=== PATIENT | female | born 1970 | race Asian ===

== ENCOUNTER 2016-05-13 12:42 | Outpatient (CLI) | payer OTHER ==
[~2016-05-13 12:42] MED LIST: AMBIEN5 MG PO; ASPIRIN/ENTERIC81 MG PO; CALPHRON667 MG PO; CARV25TA PO; CARV6.25 PO; CLOP75TA2 PO; FOSRENOL1000 MG PO; FURO40TA93 PO; GABA100C2 PO; INSUINJ47 SC; ISOS10TA14 PO; METO50TA27 PO; METO5TAB38 PO; METOCLOPRAM5 MG PO; NEXIUM40 M1 PO; PROM25TA52 PO; RANITIDINE 150150 MG PO; SENSIPAR30 MG PO; SIMV20TA2 PO; TRAM50TA PO; VICODIN ES1 TA1 PO
== END 2016-05-13 12:48 | disposition short-term general hospital (02) ==
LOC: AMB 12:42
DX: R10.84 Generalized abdominal pain (principal); R11.2 Nausea with vomiting, unspecified; R42 Dizziness and giddiness
CPT/HCPCS: A0425; A0427

== ENCOUNTER 2016-05-13 12:52 | Emergency (ER) | payer OTHER ==
[~2016-05-13] VITALS: Ht 162.6 cm; Wt 70.8 kg
[2016-05-13 13:46] LABS: PLATELET COUNT 140 K/uL (152-353)
[2016-05-13 14:54] LABS: POTASSIUM 4.3 mmol/L (3.6-5.2)
[2016-05-13 15:20] VITALS: BP 146/89; TEMP 98.2
== END 2016-05-13 15:35 | disposition home or self-care (01) ==
LOC: ED 12:52
DX: B34.9 Viral infection, unspecified (principal); R11.2 Nausea with vomiting, unspecified
CPT/HCPCS: 36415; 80053; 85027; 86318; 96360; 96376; 99284; J2405

== ENCOUNTER 2016-05-18 04:08 | Outpatient (CLI) | payer OTHER ==
[2016-05-18] MEDS ORDERED: OMEP40CA PO (04:27)
[2016-05-19] MEDS ORDERED: LEVO0.1224 PO (07:50)
[2016-05-19] MEDS ORDERED: ALBUSOL IN (07:51)
[2016-05-19] MEDS ORDERED: LISI5TAB10 PO (07:52)
[2016-05-19] MEDS ORDERED: METFTAB PO (07:53)
[2016-05-19] MEDS ORDERED: METO25TA4 OR (07:54)
[2016-05-19] MEDS ORDERED: MULTIVITAMI1 OR (07:55)
[2016-05-19] MEDS ORDERED: INSUINJ20 SC (07:56)
[2016-05-19] MEDS ORDERED: AMIODARONE400 MG PO (07:57)
[2016-05-19] MEDS ORDERED: ELIQUIS5 MG OR (07:58)
[2016-05-19] MEDS ORDERED: AMLO2.5T PO (07:58)
[2016-05-19] MEDS ORDERED: FURO40TA93 PO (07:59)
[2016-05-19] MEDS ORDERED: FERR325T5 PO (07:59)
[2016-05-19] MEDS ORDERED: GLIM2TAB PO (08:00)
[2016-05-19] MEDS ORDERED: SPIR50TA8 PO (08:01)
== END 2016-05-18 04:13 | disposition short-term general hospital (02) ==
LOC: AMB 04:08
DX: R06.09 Other forms of dyspnea (principal)
CPT/HCPCS: A0425; A0427

== ENCOUNTER 2016-05-18 04:16 | Inpatient (IN) | payer OTHER ==
[~2016-05-18] VITALS: Ht 162.6 cm; Wt 72.6 kg
[2016-05-18] VITALS (22 sets, daily range): BP systolic 135–183; BP diastolic 62–107; TEMP 97.4–98.4; Ht 162.6 cm; Wt 72.6 kg
[2016-05-18] MEDS ORDERED: OMEP40CA PO (04:27)
[2016-05-18 05:03] LABS: PLATELET COUNT 250 K/uL (152-353)
[2016-05-18 05:21] LABS: POTASSIUM 4.6 mmol/L (3.6-5.2)
[2016-05-18 10:18] LABS: POTASSIUM 3.6 mmol/L (3.6-5.2)
[2016-05-18 13:41] LABS: POTASSIUM 4.2 mmol/L (3.6-5.2)
[2016-05-19] VITALS (19 sets, daily range): BP systolic 127–171; BP diastolic 58–98; TEMP 97.8–98.7
[2016-05-19 06:37] LABS: PLATELET COUNT 222 K/uL (152-353)
[2016-05-19 06:56] LABS: POTASSIUM 5.8 mmol/L (3.6-5.2)
[2016-05-19] MEDS ORDERED: LEVO0.1224 PO (07:50)
[2016-05-19] MEDS ORDERED: ALBUSOL IN (07:51)
[2016-05-19] MEDS ORDERED: LISI5TAB10 PO (07:52)
[2016-05-19] MEDS ORDERED: METFTAB PO (07:53)
[2016-05-19] MEDS ORDERED: METO25TA4 OR (07:54)
[2016-05-19] MEDS ORDERED: MULTIVITAMI1 OR (07:55)
[2016-05-19] MEDS ORDERED: INSUINJ20 SC (07:56)
[2016-05-19] MEDS ORDERED: AMIODARONE400 MG PO (07:57)
[2016-05-19] MEDS ORDERED: ELIQUIS5 MG OR (07:58)
[2016-05-19] MEDS ORDERED: AMLO2.5T PO (07:58)
[2016-05-19] MEDS ORDERED: FERR325T5 PO (07:59)
[2016-05-19] MEDS ORDERED: FURO40TA93 PO (07:59)
[2016-05-19] MEDS ORDERED: GLIM2TAB PO (08:00)
[2016-05-19] MEDS ORDERED: SPIR50TA8 PO (08:01)
[2016-05-20] VITALS (13 sets, daily range): BP systolic 97–136; BP diastolic 55–84; TEMP 97.9–98
[2016-05-20 04:19] LABS: PLATELET COUNT 207 K/uL (152-353)
[2016-05-20 04:35] LABS: POTASSIUM 3.5 mmol/L (3.6-5.2)
== END 2016-05-20 14:40 | disposition home or self-care (01) | DRG 682 ==
LOC: ED 04:16 → ICU 06:14
PROVIDERS: Emergency Medicine; Internal Medicine
PROC: 5A1D00Z (ICD-10-PCS; principal; 2016-05-19)
DX: I12.0 Hypertensive chronic kidney disease with stage 5 chronic kidney disease or end stage renal disease (principal); J81.0 Acute pulmonary edema; N18.6 End stage renal disease; E11.00 Type 2 diabetes mellitus with hyperosmolarity without nonketotic hyperglycemic-hyperosmolar coma (NKHHC); E87.2 Acidosis; E87.5 Hyperkalemia; I10 Essential (primary) hypertension; G89.29 Other chronic pain
CPT/HCPCS: 36415; 36600; 80048; 80053; 80074; 81002; 82805; 82962; 83036; 83735; 83880; 85027; 86361; 93005; 96365; 96372; 96375; 99284; J1644; J1815; J1940; J2175; J2405; J2550; J3265; J3490

== ENCOUNTER 2016-09-01 00:30 | Outpatient (CLI) | payer OTHER ==
[~2016-09-01 00:30] MED LIST changes: +ALBUSOL IN; +AMIODARONE400 MG PO; +AMLO2.5T PO; +ELIQUIS5 MG OR; +FERR325T5 PO; +GLIM2TAB PO; +INSUINJ20 SC; +LEVO0.1224 PO; +LISI5TAB10 PO; +METFTAB PO; +METO25TA4 OR; +MULTIVITAMI1 OR; +OMEP40CA PO; +SPIR50TA8 PO
[2016-09-01] MEDS ORDERED: SENSIPAR30 MG OR (07:33)
[2016-09-01] MEDS ORDERED: DIFLUCAN50 MG PO (07:35)
[2016-09-01] MEDS ORDERED: CIPRO250 MG PO (07:35)
[2016-09-01] MEDS ORDERED: METRONIDAZOL250 MG PO (07:36)
[2016-09-01] MEDS ORDERED: NOVOLOG MIX 70/30 PR SC (16:48)
== END 2016-09-01 00:35 | disposition short-term general hospital (02) ==
LOC: AMB 00:30
DX: R06.02 Shortness of breath (principal)
CPT/HCPCS: A0425; A0427

== ENCOUNTER 2016-09-26 02:34 | Outpatient (CLI) | payer OTHER ==
[~2016-09-26 02:34] MED LIST changes: +CIPRO250 MG PO; +DIFLUCAN50 MG PO; +METRONIDAZOL250 MG PO; +NOVOLOG MIX 70/30 PR SC; +SENSIPAR30 MG OR
[2016-09-26] MEDS ORDERED: LORTAB 7.5-3251 TAB PO (04:31)
[2016-09-26] MEDS ORDERED: CIPRO250 MG PO (04:31)
[2016-09-26] MEDS ORDERED: ASPIRIN ADULT L81 M1 PO (04:31)
[2016-09-26] MEDS ORDERED: PHOSLO667 MG PO (04:32)
[2016-09-26] MEDS ORDERED: NOVOLOG SC (04:34)
== END 2016-09-26 02:38 | disposition short-term general hospital (02) ==
LOC: AMB 02:34
DX: R06.09 Other forms of dyspnea (principal)
CPT/HCPCS: A0425; A0429

== ENCOUNTER 2016-09-26 02:44 | Inpatient (IN) | payer OTHER ==
[2016-09-26] VITALS (9 sets, daily range): BP systolic 162–218; BP diastolic 88–115; TEMP 97.9–98.5; Ht 157.5 cm; Wt 76.2 kg
[~2016-09-26] VITALS: Ht 157.5 cm; Wt 76.2 kg
[2016-09-26 03:28] LABS: PLATELET COUNT 240 K/uL (152-353)
[2016-09-26 03:52] LABS: POTASSIUM 4.9 mmol/L (3.6-5.2)
[2016-09-26] MEDS ORDERED: LORTAB 7.5-3251 TAB PO (04:31)
[2016-09-26] MEDS ORDERED: ASPIRIN ADULT L81 M1 PO (04:31)
[2016-09-26] MEDS ORDERED: CIPRO250 MG PO (04:31)
[2016-09-26] MEDS ORDERED: PHOSLO667 MG PO (04:32)
[2016-09-26] MEDS ORDERED: NOVOLOG SC (04:34)
== END 2016-09-26 13:30 | disposition short-term general hospital (02) | DRG 291 ==
LOC: ED 02:44 → ICU 04:13
PROVIDERS: ADMIT Emergency Medicine
DX: I13.2 Hypertensive heart and chronic kidney disease with heart failure and with stage 5 chronic kidney disease, or end stage renal disease (principal); N18.6 End stage renal disease; I50.33 Acute on chronic diastolic (congestive) heart failure; K21.9 Gastro-esophageal reflux disease without esophagitis; E11.9 Type 2 diabetes mellitus without complications
CPT/HCPCS: 36415; 80053; 82550; 82962; 83880; 84484; 85027; 94640; 94664; 94760; 96372; 96374; 96375; 99284; J1815; J1940; J2405

== ENCOUNTER 2016-09-26 13:35 | Outpatient (CLI) | payer OTHER ==
[~2016-09-26 13:35] MED LIST changes: +ASPIRIN ADULT L81 M1 PO; +LORTAB 7.5-3251 TAB PO; +NOVOLOG SC; +PHOSLO667 MG PO
== END 2016-09-26 13:37 | disposition short-term general hospital (02) ==
LOC: AMB 13:35
DX: I13.2 Hypertensive heart and chronic kidney disease with heart failure and with stage 5 chronic kidney disease, or end stage renal disease (principal); N18.6 End stage renal disease; I50.33 Acute on chronic diastolic (congestive) heart failure; K21.9 Gastro-esophageal reflux disease without esophagitis; E11.9 Type 2 diabetes mellitus without complications
CPT/HCPCS: A0425; A0427

== ENCOUNTER 2016-11-17 16:09 | Outpatient (CLI) | payer OTHER ==
[~2016-11-17 16:09] MED LIST changes: -SENSIPAR30 MG OR
== END 2016-11-17 16:15 | disposition short-term general hospital (02) ==
LOC: AMB 16:09
DX: R11.2 Nausea with vomiting, unspecified (principal)
CPT/HCPCS: A0425; A0427

== ENCOUNTER 2016-11-17 16:15 | Emergency (ER) | payer OTHER ==
[~2016-11-17] VITALS: Ht 162.6 cm; Wt 71.2 kg
[2016-11-17 16:15] VITALS: TEMP 98.4
[2016-11-17 17:57] LABS: PLATELET COUNT 248 K/uL (152-353)
[2016-11-17 21:29] VITALS: BP 178/92
== END 2016-11-17 22:12 | disposition short-term general hospital (02) ==
LOC: ED 16:15
PROVIDERS: Specialist
PROC: 06HM33Z Insertion of Infusion Device into Right Femoral Vein, Percutaneous Approach (ICD-10-PCS; principal; 2016-11-17)
DX: E10.10 Type 1 diabetes mellitus with ketoacidosis without coma (principal); N18.6 End stage renal disease; R11.2 Nausea with vomiting, unspecified; I87.8 Other specified disorders of veins
CPT/HCPCS: 36415; 36600; 80053; 81002; 82550; 82553; 82805; 83605; 83735; 83880; 84100; 84484; 85027; 93005; 96365; 96375; 96376; 99284; C1768; J1815; J2550

== ENCOUNTER 2016-11-28 20:35 | Emergency (ER) | payer OTHER ==
[~2016-11-28] VITALS: Ht 162.6 cm; Wt 71.2 kg
[2016-11-28 22:20] VITALS: BP 144/70; TEMP 97.8
== END 2016-11-28 22:38 | disposition home or self-care (01) ==
LOC: ED 20:35
DX: J44.1 Chronic obstructive pulmonary disease with (acute) exacerbation (principal); R06.09 Other forms of dyspnea
CPT/HCPCS: 94640; 94664; 99283

== ENCOUNTER 2016-11-29 20:32 | Outpatient (CLI) | payer OTHER | END 2016-11-29 20:38 | disposition short-term general hospital (02) | LOC: AMB 20:32 | DX: R06.09 Other forms of dyspnea (principal) | CPT/HCPCS: A0425; A0427 ==

== ENCOUNTER 2016-12-03 02:30 | Emergency (ER) | payer OTHER ==
[~2016-12-03] VITALS: Ht 162.6 cm; Wt 72.6 kg
[2016-12-03 03:07] LABS: PLATELET COUNT 242 K/uL (152-353)
[2016-12-03 03:15] LABS: POTASSIUM 3.7 mmol/L (3.6-5.2)
[2016-12-03 03:59] VITALS: BP 182/95; TEMP 98.9
== END 2016-12-03 04:01 | disposition home or self-care (01) ==
LOC: ED 02:30
DX: I50.9 Heart failure, unspecified (principal); I51.7 Cardiomegaly; N18.6 End stage renal disease
CPT/HCPCS: 36415; 80053; 83880; 85027; 99283

== ENCOUNTER → 2016-12-05 10:25 | Outpatient (CLI) | payer OTHER | END | disposition short-term general hospital (02) | LOC: AMB 10:25 | DX: R06.02 Shortness of breath (principal); R06.2 Wheezing | CPT/HCPCS: A0425; A0429 ==

== ENCOUNTER 2016-12-05 10:26 | Inpatient (IN) | payer OTHER ==
[~2016-12-05] VITALS: Ht 162.6 cm; Wt 72.8 kg
[2016-12-05 10:27] VITALS: BP 111/68; TEMP 97.7
[2016-12-05 14:27] LABS: PLATELET COUNT 278 K/uL (152-353)
[2016-12-05 14:49] LABS: POTASSIUM 3.5 mmol/L (3.6-5.2)
[2016-12-05 19:55] VITALS: BP 175/99
[2016-12-05 22:00] VITALS: BP 149/85; TEMP 98.3
[2016-12-05 22:24] VITALS: BP 149/85; TEMP 98.3; Ht 162.6 cm; Wt 72.8 kg
[2016-12-05 23:00] VITALS: BP 189/96
[2016-12-05 23:50] VITALS: BP 140/78; TEMP 98.3
[2016-12-06] VITALS (13 sets, daily range): BP systolic 121–172; BP diastolic 70–101; TEMP 98–98.8
[2016-12-06 06:01] LABS: PLATELET COUNT 283 K/uL (152-353)
[2016-12-06 06:16] LABS: POTASSIUM 3.1 mmol/L (3.6-5.2)
[2016-12-06] MEDS ORDERED: PROM25TA52 PO (12:52)
[2016-12-07] VITALS: BP 154/69; TEMP 98.4
[2016-12-07 04:00] VITALS: BP 174/89; TEMP 98.1
[2016-12-07 05:09] LABS: PLATELET COUNT 251 K/uL (152-353)
[2016-12-07 05:40] LABS: POTASSIUM 3.3 mmol/L (3.6-5.2)
[2016-12-07 08:00] VITALS: BP 165/95; TEMP 97.8
[2016-12-07 12:00] VITALS: BP 150/88; TEMP 98.6
[2016-12-07 16:00] VITALS: BP 175/90; TEMP 98.5
[2016-12-07 20:00] VITALS: BP 159/70; TEMP 98.4
[2016-12-08] VITALS: BP 166/87; TEMP 98.3
[2016-12-08 04:00] VITALS: BP 145/78; TEMP 98.1
[2016-12-08 06:40] LABS: POTASSIUM 3.9 mmol/L (3.6-5.2)
[2016-12-08 08:00] VITALS: BP 161/91; TEMP 98.3
[2016-12-08 16:00] VITALS: BP 176/89; TEMP 98.2
[2016-12-08 20:00] VITALS: BP 157/65; TEMP 98.7
[2016-12-09] VITALS: BP 170/80; TEMP 98.5
[2016-12-09 04:00] VITALS: BP 152/57; TEMP 97.5
[2016-12-09 07:14] LABS: PLATELET COUNT 230 K/uL (152-353)
[2016-12-09 07:51] LABS: POTASSIUM 3.8 mmol/L (3.6-5.2)
[2016-12-09 08:00] VITALS: BP 145/64; TEMP 97.8
== END 2016-12-09 13:00 | disposition home or self-care (01) | DRG 190 ==
LOC: ED 10:26 → ICU 19:50 → MED/SURG 19:50 → ICU 12-06 15:00 → MED/SURG 12-06 15:00
PROVIDERS: ADMIT Emergency Medicine
PROC: 06HM33Z Insertion of Infusion Device into Right Femoral Vein, Percutaneous Approach (ICD-10-PCS; principal; 2016-12-06)
PROC: B54BZZA Ultrasonography of Right Lower Extremity Veins, Guidance (ICD-10-PCS; 2016-12-06)
PROC: 5A1D70Z Performance of Urinary Filtration, Intermittent, Less than 6 Hours Per Day (ICD-10-PCS; 2016-12-08)
DX: J44.1 Chronic obstructive pulmonary disease with (acute) exacerbation (principal); N18.6 End stage renal disease; I12.0 Hypertensive chronic kidney disease with stage 5 chronic kidney disease or end stage renal disease; R06.09 Other forms of dyspnea; Y84.1 Kidney dialysis as the cause of abnormal reaction of the patient, or of later complication, without mention of misadventure at the time of the procedure; E10.22 Type 1 diabetes mellitus with diabetic chronic kidney disease; K21.9 Gastro-esophageal reflux disease without esophagitis; R11.2 Nausea with vomiting, unspecified; G47.09 Other insomnia; Y92.89 Other specified places as the place of occurrence of the external cause; R06.02 Shortness of breath; I50.9 Heart failure, unspecified; I51.7 Cardiomegaly
CPT/HCPCS: 36415; 36591; 74022; 80053; 82550; 82948; 82962; 83036; 83735; 83880; 84484; 85027; 85379; 87070; 87077; 87185; 87186; 93005; 94760; 96367; 96372; 99283; 99284; C1768; J1644; J1815; J2550

== ENCOUNTER 2016-12-14 21:36 | Emergency (ER) | payer OTHER ==
[~2016-12-14] VITALS: Ht 162.6 cm; Wt 70.8 kg
[2016-12-14 22:11] LABS: PLATELET COUNT 206 K/uL (152-353)
[2016-12-14 22:38] LABS: POTASSIUM 4.2 mmol/L (3.6-5.2)
[2016-12-14 22:41] LABS: PARTIAL THROMBOPLASTIN TIME 22.5 SECONDS (24.5-33.6)
[2016-12-14 23:14] VITALS: BP 174/90; TEMP 98.4
== END 2016-12-14 23:16 | disposition home or self-care (01) ==
LOC: ED 21:36
DX: J30.89 Other allergic rhinitis (principal); J06.9 Acute upper respiratory infection, unspecified; N18.9 Chronic kidney disease, unspecified
CPT/HCPCS: 36415; 80053; 82550; 84484; 85027; 85610; 85730; 99283

== ENCOUNTER 2016-12-23 17:41 | Outpatient (CLI) | payer OTHER | END 2016-12-23 17:46 | disposition short-term general hospital (02) | LOC: AMB 17:41 | DX: E11.65 Type 2 diabetes mellitus with hyperglycemia (principal) | CPT/HCPCS: A0425; A0427 ==

== ENCOUNTER 2016-12-23 17:53 | Observation (INO) | payer OTHER ==
[~2016-12-23] VITALS: Ht 162.6 cm; Wt 71.9 kg
[2016-12-23 17:50] VITALS: BP 157/85; TEMP 98.9
[2016-12-23 18:55] LABS: PLATELET COUNT 244 K/uL (152-353)
[2016-12-23 19:11] LABS: POTASSIUM 3.8 mmol/L (3.6-5.2)
[2016-12-23 23:42] VITALS: BP 127/65; TEMP 98.5; Ht 162.6 cm; Wt 71.9 kg
[2016-12-24 04:00] VITALS: BP 127/42; TEMP 98
[2016-12-24 06:36] LABS: PLATELET COUNT 243 K/uL (152-353)
[2016-12-24 06:47] LABS: POTASSIUM 4.3 mmol/L (3.6-5.2)
[2016-12-24 20:00] VITALS: BP 159/59; TEMP 98.1
[2016-12-25] VITALS: BP 128/59; TEMP 98.4
[2016-12-25 04:00] VITALS: BP 162/84; TEMP 98.3
[2016-12-25 08:00] VITALS: BP 156/72; TEMP 99.2
[2016-12-25 12:00] VITALS: BP 153/79; TEMP 98.9
== END 2016-12-25 14:55 | disposition home or self-care (01) ==
LOC: ED 17:53 → MED/SURG 20:00
DX: R11.2 Nausea with vomiting, unspecified (principal); E11.22 Type 2 diabetes mellitus with diabetic chronic kidney disease; I12.0 Hypertensive chronic kidney disease with stage 5 chronic kidney disease or end stage renal disease; N18.6 End stage renal disease
CPT/HCPCS: 36415; 36600; 80053; 82805; 83036; 83735; 84100; 85027; 94760; 96372; 99220; 99283; G0257; G0378; J1644

== ENCOUNTER 2016-12-28 12:49 | Outpatient (CLI) | payer OTHER | END 2016-12-28 12:54 | disposition short-term general hospital (02) | LOC: AMB 12:49 | DX: E11.65 Type 2 diabetes mellitus with hyperglycemia (principal); R11.2 Nausea with vomiting, unspecified | CPT/HCPCS: A0425; A0427 ==

== ENCOUNTER 2016-12-28 12:57 | Emergency (ER) | payer OTHER ==
[~2016-12-28] VITALS: Ht 162.6 cm; Wt 68.0 kg
[2016-12-28 13:55] LABS: PLATELET COUNT 199 K/uL (152-353)
[2016-12-28 20:04] VITALS: BP 148/84; TEMP 97.8
== END 2016-12-28 19:50 | disposition home or self-care (01) ==
LOC: ED 12:57
PROVIDERS: Specialist
DX: E11.65 Type 2 diabetes mellitus with hyperglycemia (principal); R42 Dizziness and giddiness
CPT/HCPCS: 36415; 80053; 81002; 83735; 84100; 85027; 87040; 96372; 96374; 96375; 96376; 99284; J0360; J1815; J2550

== ENCOUNTER 2017-01-02 17:04 | Outpatient (CLI) | payer OTHER | END 2017-01-02 17:09 | disposition short-term general hospital (02) | LOC: AMB 17:04 | DX: R06.02 Shortness of breath (principal); R11.2 Nausea with vomiting, unspecified; R10.84 Generalized abdominal pain | CPT/HCPCS: A0425; A0427 ==

== ENCOUNTER 2017-01-02 17:12 | Observation (INO) | payer OTHER ==
[~2017-01-02] VITALS: Ht 162.6 cm; Wt 74.4 kg
[2017-01-02 17:17] VITALS: BP 72/43; TEMP 98.3
[2017-01-02 18:35] VITALS: BP 105/82
[2017-01-02 22:34] LABS: POTASSIUM 2.7 mmol/L (3.6-5.2)
[2017-01-02 22:36] LABS: PLATELET COUNT 305 K/uL (152-353)
[2017-01-02 23:10] VITALS: BP 190/90
[2017-01-03 04:59] VITALS: BP 190/92; TEMP 98.1; Ht 162.6 cm; Wt 74.4 kg
[2017-01-03 06:29] VITALS: BP 173/70; TEMP 99.3
[2017-01-03 08:00] VITALS: BP 177/86; TEMP 98.7
[2017-01-03 08:04] LABS: PLATELET COUNT 260 K/uL (152-353)
[2017-01-03 09:07] LABS: POTASSIUM 3.3 mmol/L (3.6-5.2)
[2017-01-03 12:00] VITALS: BP 141/67; TEMP 98.9
--- NOTE | 2017-01-03 13:17 | NUR ---
RADIOLOGY AT TO TAKE PT FOR CT SCAN. PT TRANSPORTED TO RADIOLOGY VIA . NAD NOTED.
[2017-01-03 16:00] VITALS: BP 162/83; TEMP 98.7
[2017-01-03 20:00] VITALS: BP 156/80; TEMP 98.3
[2017-01-04] VITALS: BP 152/76; TEMP 98.7
[2017-01-04 04:00] VITALS: BP 150/74; TEMP 98.2
[2017-01-04 05:16] LABS: PLATELET COUNT 232 K/uL (152-353)
[2017-01-04 05:33] LABS: POTASSIUM 3.8 mmol/L (3.6-5.2)
[2017-01-04 08:00] VITALS: BP 153/76; TEMP 98.8
--- NOTE | 2017-01-04 10:40 | NUR ---
REVIEWED DISCHARGE INSTRUCTIONS WITH PATIENT. IV REMOVED, BANDAID APPLIED. PATIENT WILL CALL HER FRIEND TO COME AND GET HER. PATIENT VERBALIZED UNDERSTANDING OF ALL INSTRUCTIONS.
--- NOTE | 2017-01-04 11:15 | NUR ---
PATIENT ESCORTED TO HOSPITAL EXIT VIA WHEELCHAIR AND DISCHARGED HOME WITH FRIEND IN STABLE CONDITION.
== END 2017-01-04 11:15 | disposition home or self-care (01) ==
LOC: ED 17:12 → MED/SURG 23:55
PROVIDERS: ADMIT Emergency Medicine
DX: R06.02 Shortness of breath (principal); G89.29 Other chronic pain; R11.0 Nausea; K58.8 Other irritable bowel syndrome; E11.9 Type 2 diabetes mellitus without complications; E78.4 Other hyperlipidemia; I25.10 Atherosclerotic heart disease of native coronary artery without angina pectoris; Z95.1 Presence of aortocoronary bypass graft; I10 Essential (primary) hypertension; N18.6 End stage renal disease; Z99.2 Dependence on renal dialysis; E87.4 Mixed disorder of acid-base balance; D64.89 Other specified anemias; A08.8 Other specified intestinal infections
CPT/HCPCS: 36415; 36600; 80053; 82550; 82805; 82948; 83735; 83880; 84484; 85027; 85379; 94640; 94664; 94760; 96360; 96365; 96366; 96367; 96372; 96374; 99220; 99283; G0378; J1644; J2405; J2550

== ENCOUNTER 2017-03-24 11:30 | Outpatient (CLI) | payer OTHER | END 2017-03-24 11:36 | disposition short-term general hospital (02) | LOC: AMB 11:30 | DX: E11.65 Type 2 diabetes mellitus with hyperglycemia (principal); R25.2 Cramp and spasm | CPT/HCPCS: A0425; A0429 ==

== ENCOUNTER 2017-03-24 11:36 | Emergency (ER) | payer OTHER ==
[~2017-03-24] VITALS: Ht 162.6 cm; Wt 68.0 kg
[2017-03-24 11:40] VITALS: TEMP 98.2
[2017-03-24 14:00] LABS: POTASSIUM 4.6 mmol/L (3.6-5.2)
[2017-03-24 14:11] LABS: PLATELET COUNT 294 K/uL (152-353)
[2017-03-24 17:00] VITALS: BP 169/85
== END 2017-03-24 17:00 | disposition home or self-care (01) ==
LOC: ED 11:36
PROVIDERS: Emergency Medicine
DX: M62.830 Muscle spasm of back (principal); G93.9 Disorder of brain, unspecified; T42.6X5A Adverse effect of other antiepileptic and sedative-hypnotic drugs, initial encounter; R45.1 Restlessness and agitation; Z76.5 Malingerer [conscious simulation]
CPT/HCPCS: 36415; 80053; 82550; 82553; 85027; 96372; 99282; 99283; J1885; J2360

== ENCOUNTER 2017-03-24 23:22 | Outpatient (CLI) | payer OTHER | END 2017-03-24 23:26 | disposition short-term general hospital (02) | LOC: AMB 23:22 | DX: M62.838 Other muscle spasm (principal) | CPT/HCPCS: A0425; A0427 ==

== ENCOUNTER 2017-03-24 23:28 | Emergency (ER) | payer OTHER ==
[~2017-03-24] VITALS: Ht 162.6 cm; Wt 68.0 kg
[2017-03-25 00:04] VITALS: BP 164/88; TEMP 97.6
== END 2017-03-25 00:07 | disposition home or self-care (01) ==
LOC: ED 23:28
DX: Z76.5 Malingerer [conscious simulation] (principal)
CPT/HCPCS: 99282